=== PATIENT | female | born 1965 | race Caucasian/White ===

== ENCOUNTER → 2019-11-16 13:17 | Outpatient (BNVA) | payer OTHER, SELFPAY | PROVIDERS: Family Provider Family Medicine; PCP Family Medicine; Referring Provider Family Medicine; Visit Provider Internal Medicine Rheumatology | DX: M35.00 Sjogren syndrome, unspecified (principal); Z79.899 Other long term (current) drug therapy; Z11.59 Encounter for screening for other viral diseases; M25.50 Pain in unspecified joint; M79.7 Fibromyalgia | CPT/HCPCS: 99204 ==

== ENCOUNTER → 2019-11-16 15:00 | Outpatient (BNVA) | payer OTHER, SELFPAY | PROVIDERS: Family Provider Family Medicine; PCP Family Medicine; Referring Provider Family Medicine; Visit Provider Internal Medicine Rheumatology | DX: Z79.899 Other long term (current) drug therapy (principal); M25.50 Pain in unspecified joint; M35.00 Sjogren syndrome, unspecified; M79.7 Fibromyalgia; Z11.59 Encounter for screening for other viral diseases | CPT/HCPCS: 81001; 85025 ==

== ENCOUNTER 2019-11-16 15:13 | Outpatient (CLI) | payer OTHER, SELFPAY ==
--- NOTE | 2019-11-16 15:31 | XR_ITS ---
WS: [id number] RIGHT ELBOW: 2 VIEW(S) TECHNIQUE: AP and lateral. HISTORY: joint pain COMPARISON: None available. No acute fractures or dislocation. No joint effusion. No soft tissue abnormality. XR/XR elbow RT 2V [id number] IMPRESSION: No fracture or joint effusion.
--- NOTE | 2019-11-16 15:31 | XR_ITS ---
WS: [id number] CHEST 2 VIEWS HISTORY: joint pain COMPARISON: None available. Lungs: Clear with no abnormality. No pleural effusion or pneumothorax. Cardiac size: Normal. Mediastinum/Aorta: Normal mediastinum. Bones: Normal. XR/XR chest 2V* [id number] IMPRESSION: Normal chest.
== END 2019-11-16 15:14 | disposition home or self-care (01) ==
LOC: RADWPI 15:19
PROVIDERS: Family Provider Family Medicine; PCP Family Medicine; Visit Provider Internal Medicine Rheumatology
DX: M25.50 Pain in unspecified joint (principal); M25.521 Pain in right elbow
CPT/HCPCS: 71046; 73070; 80076; 82306; 82565; 84439; 84443; 85651; 86140

== ENCOUNTER 2020-02-04 08:22 | Outpatient (CLI) | payer OTHER, SELFPAY ==
--- NOTE | 2020-02-04 08:56 | MM_ITS ---
WS: [id number] RIGHT DIGITAL MAMMOGRAPHY WITH CAD CLINICAL INFORMATION: RT BLOODY DISCHARGE AND INVERTED NIPPLE HISTORY: Right bloody nipple discharge. Inverted nipples. COMPARISON: None available TECHNIQUE: 7 views of the right breast were obtained. FINDINGS: Scattered fibroglandular densities of the right breast. Nodular density deep subareola corresponds to inverted nipple. No suspicious parenchymal abnormalities. Ultrasound is pending. ULTRASOUND BREAST RIGHT TECHNIQUE: Ultrasound right breast focused area of concern. CLINICAL INFORMATION: RT BLOODY DISCHARGE AND INVERTED NIPPLE COMPARISON: None. FINDINGS: Ultrasound right breast at the nipple. Small anechoic focus in the subareola region measuring 3.7 x 3 .3 x 4.2 mm likely represents a small dilated duct versus less likely cyst. No visualized intraductal papilloma. This is probably benign and recommend 6 month follow-up with diagnostic mammography and u ltrasound. MM/[place] [id number] IMPRESSION: BI-RADS: 3-Probably Benign FOLLOW UP: 6 Month Follow-up
== END 2020-02-04 08:23 | disposition home or self-care (01) ==
LOC: RADSHAW 08:25
PROVIDERS: Family Provider Family Medicine; PCP Nurse Practitioner Family; Visit Provider Nurse Practitioner Family
DX: N64.52 Nipple discharge (principal)
CPT/HCPCS: 76642; 77065

== ENCOUNTER 2020-06-13 10:00 | Outpatient (CLI) | payer OTHER, SELFPAY ==
--- NOTE | 2020-06-13 10:04 | CT_ITS ---
WS: [id number] LDCT LUNG CANCER SCREENING TECHNIQUE: Noncontrast CT of the chest with coronal and sagittal reformatted images. CLINICAL INFORMATION: H/O TOBACCO USE COMPARISON: None. DLP: 51.38 mGy.cm DIvol: 1.[address] scans at [facility] use at least one of these dose optimization techniques: automat ed exposure control; mA and/or kV adjustment per patient size (includes targeted exams where dose is matched to clinical indication); or iterative reconstruction. FINDINGS: 3 mm pulmonary nodule right upper lobe may be partially calcified. No other suspicious pulmonary pare nchymal opacities. No acute pulmonary infiltrates. No mediastinal or hilar lymphadenopathy. Aortic ca lcification. Adrenal glands are normal. CT/CT lung screening [id number] IMPRESSION: LUNG-RADS: 2-Benign Appearance or Behavior FOLLOW UP: 12 Month: Continue annual screening with LDCT
== END 2020-06-13 10:01 | disposition home or self-care (01) ==
LOC: CT 10:01
PROVIDERS: PCP Nurse Practitioner Family; Visit Provider Internal Medicine Critical Care Medicine
DX: Z12.2 Encounter for screening for malignant neoplasm of respiratory organs (principal); Z87.891 Personal history of nicotine dependence
CPT/HCPCS: 87635; G0297

== ENCOUNTER 2020-06-15 12:32 | Outpatient (CLI) | payer OTHER, SELFPAY ==
--- NOTE | 2020-06-15 13:11 | PFTS_ITS ---
Date of Study:06/15/20 Date of Dictation: 06/16/2020 MECHANICS: Forced vital capacity (FVC) is . Normal Forced expiratory volume in one second (FEV1) is reduced FEV1/FVC is reduced Significant bronchodilator response noted FLOW VOLUME LOOP: Normal LUNG VOLUMES: Total lung capacity (TLC) is normal. Residual volume (RV) is . Normal DIFFUSING CAPACITY FOR CARBON MONOXIDE: Mildly reduced . INTERPRETATION: Spirometry suggestive of severe obstructive ventilatory defect with significant response to bronchodilators and mild gas transfer defect. Correlate clinically MTDD
--- NOTE | 2020-06-15 14:15 | USCV_ITS ---
Mireya Andrews Age: 55 Gender: F : 1965 Exam Date: 06/15/2020 13:56 Ordering Phys: Ruth Trevino MD Technologist: Jimmy Vazquez Exam Location: [facility] [place] Indication: SOB BP: 120 / 70 HR: 77 Rhythm: Sinus Technical Quality: Limited MEASUREMENTS (Male / Female) Normal Values 2D ECHO LV Diastolic Diameter PLAX 4.2 cm 4.2 - 5.9 / 3.9 - 5.3 cm LV Systolic Diameter PLAX 3.0 cm IVS Diastolic Thickness 0.8 cm 0.6 - 1.0 / 0.6 - 0.9 cm IVS Systolic Thickness 1.2 cm LVPW Diastolic Thickness 1.0 cm 0.6 - 1.0 / 0.6 - 0.9 cm LVPW Systolic Thickness 1.0 cm LVOT Diameter 2.0 cm LV Ejection Fraction 2D Teich 56.5 % LV Ejection Fraction MOD 2C 70.9 % LV Ejection Fraction 2C AL 71.7 % LA Diameter 3.8 cm LA Width 3.7 cm LA Height 4.2 cm RA Width 3.6 cm RA Height 4.5 cm Aorta at Sinotubular Diameter 1.1 cm M-MODE LV Diastolic Diameter MM 4.4 cm 4.2 - 5.9 / 3.9 - 5.3 cm LV Systolic Diameter MM 3.1 cm LV Ejection Fraction MM Teich 58.1 % IVS Diastolic Thickness MM 0.8 cm 0.6 - 1.0 / 0.6 - 0.9 cm IVS Systolic Thickness MM 1.7 cm LVPW Diastolic Thickness MM 1.1 cm 0.6 - 1.0 / 0.6 - 0.9 cm LVPW Systolic Thickness MM 1.6 cm RV Diastolic Diameter MM 1.1 cm Aortic Annulus Diameter 3.3 cm LA Ao Ratio MM 1.1 MV E Point Septal Separation 0.7 cm DOPPLER AV Peak Velocity 129.0 cm/s LVOT Peak Velocity 112.0 cm/s AV Area Cont Eq vti 2.3 cm squared AV Area Cont Eq pk 2.8 cm squared MV Area PHT 5.0 cm squared Mitral E to A Ratio 1.3 MV E' Velocity 12.0 cm/s Mitral E to MV E' Ratio 6.7 Mitral E to LV E' Lateral Ratio 5.7 Mitral E to LV E' Septal Ratio 8.2 TR Peak Velocity 103.0 cm/s TR Peak Gradient 4.2 mmHg TV Peak E Velocity 98.0 cm/s Right Atrial Pressure 3.0 mmHg Pulmonary Artery Systolic Pressu 7.2 mmHg PV Peak Velocity 48.0 cm/s FINDINGS Left Ventricle Normal left ventricular size, systolic function and wall thickness, with no regional wall motion abnormalities. LV systolic function is 55 to 60%. Normal left ventricular wall thickness. Normal diastolic filling pattern. Right Ventricle The right ventricle is normal in size and function. Right Atrium The right atrium is normal in size. Left Atrium The left atrium is normal in size. Mitral Valve Structurally normal mitral valve without significant stenosis or prolapse. There is no mitral regurgitation. Aortic Valve Structurally normal aortic valve without significant sclerosis or stenosis. There is no aortic regurgitation. Tricuspid Valve Structurally normal tricuspid valve without significant stenosis or regurgitation. Insufficient TR jet to measure RVSP. Pulmonic Valve Structurally normal pulmonic valve without significant stenosis. There is no pulmonic regurgitation. Pericardium Normal pericardium without effusion. Aorta Normal ascending aorta dimension. CONCLUSIONS This is a limited quality echo. LV systolic function is normal with EF of 55 to 60%. Normal diastolic function. Carlos Hernandez MD (Electronically Signed) Final Date: 15 June 2020 17:25 S
== END 2020-06-15 12:33 | disposition home or self-care (01) ==
LOC: RT 12:32
PROVIDERS: PCP Nurse Practitioner Family; Visit Provider Internal Medicine Critical Care Medicine
DX: R06.02 Shortness of breath (principal)
CPT/HCPCS: 93306; 94060; 94726; 94729; J7611

== ENCOUNTER 2020-06-29 11:00 | Outpatient (CLI) | payer OTHER, SELFPAY | END 2020-06-29 11:01 | disposition home or self-care (01) | LOC: SLEEP 06-30 10:00 | PROVIDERS: PCP Nurse Practitioner Family; Visit Provider Internal Medicine Critical Care Medicine | DX: J44.9 Chronic obstructive pulmonary disease, unspecified (principal) | CPT/HCPCS: 94762 ==

== ENCOUNTER 2020-08-22 15:11 | Outpatient (CLI) | payer OTHER, SELFPAY ==
--- NOTE | 2020-08-22 15:18 | MM_ITS ---
WS: [id number] DIAGNOSTIC BILATERAL DIGITAL MAMMOGRAM WITH CAD RIGHT breast ultrasound, limited HISTORY: BLOODY NIPPLE DISCHARGE, RIGHT. COMPARISON: 02/04/2020, 05/18/2019 and 12/31/2017 and 02/04/2020 TECHNIQUE: Bilateral craniocaudad, mediolateral oblique, and mediolateral views are submitted. Spot c ompression RIGHT CC. Computer aided detection utilized. Breast composition: The breasts are heterogeneously dense, which may obscure small masses. No interva l change in appearance of the breast parenchyma. Nipples are slightly inverted which is congenital. T here are no dilated ducts. No distortion or soft tissue masses are identified. No suspicious calcific ations. RIGHT breast ultrasound, limited. Unchanged hypoechoic nodule measuring 4 x 3 x 4 mm at the subareolar margin without increased vascula rity. This is similar to the prior examination. No dilated ducts. MM/[place] [id number] IMPRESSION: BI-RADS: 2-Benign FOLLOW UP: 1 Year Follow-up No mammographic abnormality to explain the nipple discharge.
== END 2020-08-22 15:12 | disposition home or self-care (01) ==
LOC: RADSHAW 15:14
PROVIDERS: PCP Nurse Practitioner Family; Visit Provider Nurse Practitioner Family
DX: N64.52 Nipple discharge (principal)
CPT/HCPCS: 76642; 77066

== ENCOUNTER 2020-10-23 14:32 | Outpatient (CLI) | payer OTHER, SELFPAY ==
[2020-10-24 16:27] LABS: Alternaria Alternata (M6) Ige <0.10 kU/L; Alternaria Class 0; Bermuda Class 0; Bermuda Grass (G2) Ige <0.10 kU/L; Cat Dander (E1) Ige <0.10 kU/L; Cat Dander Class 0; Common Ragweed (Short) (W1) Ig <0.10 kU/L; D. Farinae Class 0; Dermatophagoides Class 0; Dermatophagoides Farinae (D2) <0.10 kU/L; Dermatophagoides Pteronyssinus <0.10 kU/L; Dog Dander (E5) Ige <0.10 kU/L; Dog Dander Class 0; Elm (T8) Ige <0.10 kU/L; Elm Class 0; English Plantain (W9) Ige <0.10 kU/L; English Plantain Class 0; House Dust (Greer) (H1) Ige <0.10 kU/L; House Dust (Hollister- Stier) <0.10 kU/L; House Dust Class 0; Immunoglobulin E 12 kU/L (<OR=114); Immunoglobulin E 14 kU/L (<OR=114); Johnson Grass (G10) Ige <0.10 kU/L; Johnson Grass Cl 0; June Grass Class 0; June Grass(Kentucky Blue) (G8) <0.10 kU/L; Lamb'S Quarters (Goose Foot) <0.10 kU/L; Lamb'S Quarters Class 0; Maple (Box Elder) (T1) Ige <0.10 kU/L; Maple Class 0; Meadow Fescue (G4) Ige <0.10 kU/L; Meadow Fescue Class 0; Mucor Racemosus Class 0; Oak (T7) Ige <0.10 kU/L; Oak Class 0; Orchard Grass (Cocksfoot) (G3) <0.10 kU/L; Penicillium Class 0; Penicillium Notatum (M1) Ige <0.10 kU/L; Perennial Rye Grass (G5) Ige <0.10 kU/L; Perennial Rye Grass Class 0; Ragweeed Class 0; Rough Marsh Elder (W16) Ige <0.10 kU/L; Rough Marsh Elder Class 0; Sweet Vernal Class 0; Sweet Vernal Grass (G1) Ige <0.10 kU/L; Timothy Grass (G6) Ige <0.10 kU/L; Timothy Grass Class 0
[2020-10-25 18:53] LABS: Aspergillus Fumigatus, Igg Ab, 39.7 mg/L (<=102)
== END 2020-10-23 14:33 | disposition home or self-care (01) ==
LOC: LAB 14:35
PROVIDERS: PCP Nurse Practitioner Family; Visit Provider Internal Medicine Critical Care Medicine
DX: R06.02 Shortness of breath (principal)
CPT/HCPCS: 36415; 82785; 86003